=== PATIENT | female | born 1960 | race Two or more races ===

== ENCOUNTER 2017-07-08 16:03 | Emergency (ER) | payer OTHER ==
[~2017-07-08] VITALS: Ht 157.5 cm; Wt 77.1 kg
[~2017-07-08 16:03] MED LIST: ASPI-264 PO; CALC500T87 PO; CLON2TAB3 PO; HYDR-3546 PO; INSLANTI SC; INSUINJ4 SC; INSUPOW; LIS20T PO; MELO1TAB56 PO; METFSOL2; OMEP20CA74 PO; SIMV-13 PO; TIZA4TAB9 PO; TRAZ50TA2 PO
[2017-07-08] MEDS ORDERED: traMADol HCL 50 MG TAB PO ONE (17:45)
[2017-07-08 22:45] VITALS: BP 102/54
== END 2017-07-08 23:11 | disposition home or self-care (01) ==
LOC: ER 16:03 → EDBD 16:03 → ER 23:11
DX: S93.491A Sprain of other ligament of right ankle, initial encounter (principal); S13.4XXA Sprain of ligaments of cervical spine, initial encounter; S20.219A Contusion of unspecified front wall of thorax, initial encounter; M19.90 Unspecified osteoarthritis, unspecified site; E11.9 Type 2 diabetes mellitus without complications; I10 Essential (primary) hypertension; K21.9 Gastro-esophageal reflux disease without esophagitis; E07.9 Disorder of thyroid, unspecified; E78.5 Hyperlipidemia, unspecified; Z79.4 Long term (current) use of insulin; Z79.82 Long term (current) use of aspirin; Z90.710 Acquired absence of both cervix and uterus; V43.52XA Car driver injured in collision with other type car in traffic accident, initial encounter; Y93.89 Activity, other specified; Y92.89 Other specified places as the place of occurrence of the external cause; Y99.8 Other external cause status
CPT/HCPCS: 71250; 72125; 73600; 74176; 93005